=== PATIENT | female | born 1955 | race Caucasian/White ===

== ENCOUNTER → 2021-04-01 | Outpatient (CLI) | payer OTHER ==
[2021-04-01 12:47] LABS: BUN/CREATININE RATIO 13 (0-10)
== END ==
LOC: LAB 11:53
PROVIDERS: Ophthalmology
DX: Z01.812 Encounter for preprocedural laboratory examination (principal); Z01.810 Encounter for preprocedural cardiovascular examination; Z95.0 Presence of cardiac pacemaker; R94.31 Abnormal electrocardiogram [ECG] [EKG]
CPT/HCPCS: 36415; 80048; 93005

== ENCOUNTER → 2021-05-06 | Outpatient (CLI) | payer OTHER | LOC: ECHO 09:55 | DX: I42.0 Dilated cardiomyopathy (principal); I42.8 Other cardiomyopathies; I37.1 Nonrheumatic pulmonary valve insufficiency; Z95.0 Presence of cardiac pacemaker | CPT/HCPCS: ECHO; 93306 ==

== ENCOUNTER → 2021-08-27 | Outpatient (CLI) | payer OTHER | LOC: KOH-I 08-21 13:30 | DX: R05.9 Cough, unspecified (principal); R09.89 Other specified symptoms and signs involving the circulatory and respiratory systems | CPT/HCPCS: 71250 ==

== ENCOUNTER → 2022-02-24 | Outpatient (CLI) | payer OTHER | LOC: KOH-I 11:08 | DX: M79.621 Pain in right upper arm (principal); M79.652 Pain in left thigh | CPT/HCPCS: 73060; 73502; 73552 ==